=== PATIENT | female | born 2000 ===

== ENCOUNTER 2018-10-18 13:45 | Inpatient (IN) ==
[2018-10-18] MEDS ORDERED: ASPIRIN 325 MG TABLET PO STA (14:28)
[2018-10-18 14:36] LABS: Basophils % 0.4 % (0.0-0.8); Eosinophils % 0.2 % (0.00-10.9); Hematocrit 26.5 VOL% (35.7-47.0); Hemoglobin 8.8 GM/DL (12.0-16.0); Immature Granulocytes % 0.7 %; Immature Granulocytes Absolute 0.03 #; Lymphocytes # 0.4 10*3/uL (1.4-4.0); Lymphocytes % 9.6 % (21.3-54.2); Mean Corpuscular HGB Conc 33.2 GM/DL (32-36); Mean Corpuscular Hemoglobin 31 PG (27-34); Mean Corpuscular Volume 94.3 FL (87-102); Mean Platelet Volume 9.8 FL (9.6-12.0); Monocytes # 0.2 10*3/uL (0.11-0.8); Monocytes % 3.9 % (1.7-12.7); Neutrophils # 3.9 10*3/uL (1.4-7.4); Neutrophils % 85.2 % (38.7-73.9); Platelet Count 100 T/CUMM (130-400); Red Blood Count 2.81 MC/CUMM (3.8-5.5); Red Cell Distribution Width 12.6 % (9.3-17.3); White Blood Count 4.6 T/CUMM (4-12)
[2018-10-18 14:47] LABS: PT Patient Result 10.9 SECS; Partial Thromboplastin Time 37.6 SECS (0-40)
[2018-10-18] MEDS ORDERED: VANCOMYCIN INJ 1,500 MG in SODIUM CHLORIDE 0.9% 500 ML IV STA (14:47)
[2018-10-18] MEDS ORDERED: CLINDAMYCIN INJ 600 MG in PREMIX 1 EACH IV STA (14:53)
[2018-10-18 14:57] LABS: Albumin 3.4 G/DL (3.4-5.0); Bilirubin,Total 0.5 MG/DL (0.2-1.0); Calcium 7.9 MG/DL (8.5-10.1); Osmolality,Calculated 271.8 MOS/KG (273-304); Potassium 3.4 MMOL/L (3.5-5.1); Total Protein 6.3 G/DL (6.4-8.3)
[2018-10-18] MEDS ORDERED: ACETAMINOPHEN 325 MG TABLET PO PRN (15:55)
[2018-10-18] MEDS ORDERED: MORPHINE 4 MG/1 ML VIAL IV PRN (15:55)
[2018-10-18] MEDS ORDERED: LACTULOSE 20 GM/30 ML UDCUP PO PRN (15:55)
[2018-10-18] MEDS ORDERED: ONDANSETRON 4 MG/2 ML VIAL IV PRN (15:55)
[2018-10-18] MEDS ORDERED: SODIUM CHLORIDE 0.9% 1,000 ML IV SCH (17:00)
[2018-10-18] MEDS ORDERED: LEVOFLOXACIN INJ 750 MG in PREMIX 1 EACH IV SCH (17:30)
[2018-10-18] MEDS: DOCUSATE SODIUM 100 MG CAPSULE PO SCH (21:40)
[2018-10-19] MEDS ORDERED: ACETAMINOPHEN 325 MG TABLET PO PRN (00:04)
[2018-10-19 01:44] LABS: Basophils % 0.4 % (0.0-0.8); Eosinophils # 0.1 10*3/uL (0.0-0.87); Eosinophils % 0.9 % (0.00-10.9); Hematocrit 26.6 VOL% (35.7-47.0); Hemoglobin 8.8 GM/DL (12.0-16.0); Immature Granulocytes % 1.3 %; Immature Granulocytes Absolute 0.07 #; Lymphocytes # 0.4 10*3/uL (1.4-4.0); Lymphocytes % 8.3 % (21.3-54.2); Mean Corpuscular HGB Conc 33.1 GM/DL (32-36); Mean Corpuscular Hemoglobin 32 PG (27-34); Mean Corpuscular Volume 95.3 FL (87-102); Mean Platelet Volume 10.1 FL (9.6-12.0); Monocytes # 0.3 10*3/uL (0.11-0.8); Monocytes % 5.3 % (1.7-12.7); Neutrophils # 4.4 10*3/uL (1.4-7.4); Neutrophils % 83.8 % (38.7-73.9); Red Blood Count 2.79 MC/CUMM (3.8-5.5); Red Cell Distribution Width 12.8 % (9.3-17.3); White Blood Count 5.3 T/CUMM (4-12)
[2018-10-19 01:45] LABS: Platelet Count 97 T/CUMM (130-400)
[2018-10-19 02:07] LABS: Calcium 7.5 MG/DL (8.5-10.1); Osmolality,Calculated 271.2 MOS/KG (273-304); Potassium 4.2 MMOL/L (3.5-5.1)
[2018-10-19] MEDS: DOCUSATE SODIUM 100 MG CAPSULE PO SCH ×2 (09:08→22:31)
[2018-10-19] MEDS ORDERED: BUPIVACAINE MPF 0.25% 30 ML VIAL ONE (11:27)
[2018-10-19] MEDS ORDERED: LIDOCAINE 1%/EPI INJ 20 ML VIAL ONE (11:27)
[2018-10-19] MEDS ORDERED: PROPOFOL 200 MG/20 ML VIAL IV ONE (12:23)
[2018-10-19] MEDS ORDERED: MIDAZOLAM 2 MG/2 ML VIAL ONE (12:23)
[2018-10-19] MEDS ORDERED: fentaNYL 100 MCG/2 ML VIAL ONE (12:23)
[2018-10-20 05:25] LABS: Basophils % 0.3 % (0.0-0.8); Eosinophils # 0.2 10*3/uL (0.0-0.87); Eosinophils % 2.6 % (0.00-10.9); Hematocrit 28.5 VOL% (35.7-47.0); Hemoglobin 8.9 GM/DL (12.0-16.0); Immature Granulocytes % 4.1 %; Immature Granulocytes Absolute 0.24 #; Lymphocytes % 17.2 % (21.3-54.2); Mean Corpuscular HGB Conc 31.2 GM/DL (32-36); Mean Corpuscular Hemoglobin 31 PG (27-34); Mean Corpuscular Volume 97.6 FL (87-102); Mean Platelet Volume 10.8 FL (9.6-12.0); Monocytes # 0.4 10*3/uL (0.11-0.8); Monocytes % 7.4 % (1.7-12.7); Neutrophils % 68.4 % (38.7-73.9); Platelet Count 101 T/CUMM (130-400); Red Blood Count 2.92 MC/CUMM (3.8-5.5); Red Cell Distribution Width 12.9 % (9.3-17.3); White Blood Count 5.8 T/CUMM (4-12)
[2018-10-20 05:52] LABS: Calcium 8.2 MG/DL (8.5-10.1); Osmolality,Calculated 273.4 MOS/KG (273-304); Potassium 4.5 MMOL/L (3.5-5.1)
[2018-10-20] MEDS: DOCUSATE SODIUM 100 MG CAPSULE PO SCH ×2 (08:00→21:53)
[2018-10-20] MEDS ORDERED: SODIUM CHLORIDE 0.9% IV ONE (12:00)
[2018-10-20] MEDS ORDERED: AMIKACIN IV ONE (12:00)
[2018-10-20] MEDS ORDERED: AZTREONAM 1,000 MG in SYRINGE 1 EACH IV SCH (12:00)
[2018-10-20] MEDS ORDERED: AMIKACIN IV PRN (12:01)
[2018-10-20] MEDS ORDERED: SODIUM CHLORIDE 0.9% IV PRN (12:01)
[2018-10-20] MEDS: AZTREONAM 1,000 MG in SODIUM CHLORIDE 0.9% 100 ML IV SCH (14:38)
[2018-10-21] MEDS: DOCUSATE SODIUM 100 MG CAPSULE PO SCH ×2 (10:50→21:12)
[2018-10-21] MEDS: AZTREONAM 1,000 MG in SODIUM CHLORIDE 0.9% 100 ML IV SCH (12:54)
[2018-10-21] MEDS: CIPROFLOXACIN 500 MG TABLET PO SCH (17:59)
[2018-10-22] MEDS: CIPROFLOXACIN 500 MG TABLET PO SCH (08:13)
[2018-10-22] MEDS: DOCUSATE SODIUM 100 MG CAPSULE PO SCH ×2 (08:13→21:42)
[2018-10-22] MEDS: AZTREONAM 1,000 MG in SYRINGE 1 EACH IV SCH (13:22)
[2018-10-23 06:32] LABS: Basophils % 0.4 % (0.0-0.8); Eosinophils # 0.6 10*3/uL (0.0-0.87); Eosinophils % 8.6 % (0.00-10.9); Hematocrit 29.4 VOL% (35.7-47.0); Hemoglobin 9.4 GM/DL (12.0-16.0); Immature Granulocytes % 16.7 %; Immature Granulocytes Absolute 1.23 #; Lymphocytes # 2.2 10*3/uL (1.4-4.0); Lymphocytes % 29.3 % (21.3-54.2); Mean Corpuscular Hemoglobin 31 PG (27-34); Mean Corpuscular Volume 95.5 FL (87-102); Mean Platelet Volume 9.7 FL (9.6-12.0); Monocytes # 0.6 10*3/uL (0.11-0.8); Monocytes % 8.4 % (1.7-12.7); Neutrophils # 2.7 10*3/uL (1.4-7.4); Neutrophils % 36.6 % (38.7-73.9); Platelet Count 169 T/CUMM (130-400); Red Blood Count 3.08 MC/CUMM (3.8-5.5); Red Cell Distribution Width 12.8 % (9.3-17.3); White Blood Count 7.4 T/CUMM (4-12)
[2018-10-23 06:52] LABS: Calcium 8.3 MG/DL (8.5-10.1); Osmolality,Calculated 279.8 MOS/KG (273-304); Potassium 4.3 MMOL/L (3.5-5.1)
[2018-10-23] MEDS: CIPROFLOXACIN 500 MG TABLET PO SCH (09:02)
[2018-10-23] MEDS: DOCUSATE SODIUM 100 MG CAPSULE PO SCH ×2 (09:02→21:09)
[2018-10-23 10:04] LABS: Eosinophils 11 % (0-10); Lymphocytes 38 % (20-55); Segmented Neutrophils 40 % (50-85); Total Cells Counted 100
[2018-10-23 10:05] LABS: Anisocytosis 1+; Hypochromasia 1+; Ovalocytes Few; Platelet Estimate Adequate; Polychromasia Slight; Stomatocytes Slight
[2018-10-23] MEDS: AZTREONAM 1,000 MG in SYRINGE 1 EACH IV SCH (14:06)
[2018-10-24] MEDS: DOCUSATE SODIUM 100 MG CAPSULE PO SCH (08:55)
[2018-10-24] MEDS: CIPROFLOXACIN 500 MG TABLET PO SCH (08:55)
[2018-10-24] MEDS: AZTREONAM 1,000 MG in SYRINGE 1 EACH IV SCH (12:11)
[2018-10-24 12:38] VITALS: BP 128/74
== END 2018-10-24 14:06 | disposition home or self-care (01) | DRG 314 ==
LOC: EDBD → EDUNIT# → N.EDINP 13:45 → N.ED 13:45 → N.5E 17:34 → SUATTDRO 10-19 09:28
PROVIDERS: ADMIT Internal Medicine; ATTEND Internal Medicine

== ENCOUNTER 2020-09-03 12:48 | Observation (INO) ==
[2020-09-03 13:35] LABS: Basophils % 0.4 % (0.0-0.8); Eosinophils # 0.1 10*3/uL (0.0-0.87); Eosinophils % 3.1 % (0.00-10.9); Hematocrit 37.4 VOL% (35.7-47.0); Hemoglobin 12.5 GM/DL (12.0-16.0); Immature Granulocytes Absolute 0.09 #; Lymphocytes % 21.7 % (21.3-54.2); Mean Corpuscular HGB Conc 33.4 GM/DL (32-36); Mean Corpuscular Volume 92.8 FL (87-102); Mean Platelet Volume 8.9 FL (9.6-12.0); Monocytes % 4.7 % (1.7-12.7); Neutrophils % 68.1 % (38.7-73.9); Platelet Count 157 T/CUMM (130-400); Red Blood Count 4.03 MC/CUMM (3.8-5.5); Red Cell Distribution Width 13.6 % (9.3-17.3); White Blood Count 4.5 T/CUMM (4-12)
[2020-09-03 13:54] LABS: Albumin 3.8 G/DL (3.4-5.0); Bilirubin,Total 0.4 MG/DL (0.2-1.0); Calcium 8.4 MG/DL (8.5-10.1); Osmolality,Calculated 285.4 MOS/KG (273-304); Total Protein 7.6 G/DL (6.4-8.3)
[2020-09-03 14:17] LABS: Bacteria,Urine Many /HPF (Few); Bilirubin,Urine Negative (Negative); Blood, Urine Small mg/dL (Negative); Glucose,Urine (UA) Negative (Negative); Ketones,Urine Negative (Negative); Mucus,Urine Moderate /LPF (Occasional); Nitrite,Urine Negative (Negative); Protein,Urine 100 MG/DL; Squamous Epithelial Cell,Urine Occasional /HPF (0-10); Urine Appearance CLOUDY (Clear); Urine Color Red (Yellow); Urine Specific Gravity 1.006 (1.001-1.035); Urine Urobilinogen < 2.0 EU/DL (0.2-1.0); WBC,Urine 99 /HPF (0-6)
[2020-09-03 14:38] LABS: Barbiturates Screen,Urine Negative (Negative); Benzodiazepines Screen,Urine Negative (Negative); Cannabinoid Screen,Urine Negative (Negative); Opiate Screen,Urine Negative (Negative); Phencyclidine Screen,Urine Negative (Negative)
[2020-09-03] MEDS ORDERED: ACETAMINOPHEN 325 MG TABLET PO PRN (15:03)
[2020-09-03] MEDS ORDERED: DEXTROSE 50% 25 GM/50 ML VIAL IV PRN (15:03)
[2020-09-03] MEDS ORDERED: ALBUTEROL 2.5 MG/3 ML NEB RESP TX PRN (15:03)
[2020-09-03] MEDS ORDERED: ONDANSETRON 4 MG/2 ML VIAL IV PRN (15:03)
[2020-09-03] MEDS ORDERED: GLUCAGON 1 MG VIAL IM PRN (15:03)
[2020-09-03] MEDS: HEPARIN 5,000 UNIT/1 ML VIAL SUBCUT SCH ×2 (18:39→22:43)
[2020-09-03] MEDS ORDERED: LEVOFLOXACIN INJ 500 MG in PREMIX 1 EACH IV ONE (21:00)
[2020-09-04 05:34] LABS: Basophils % 0.6 % (0.0-0.8); Eosinophils # 0.2 10*3/uL (0.0-0.87); Eosinophils % 3.8 % (0.00-10.9); Hematocrit 36.7 VOL% (35.7-47.0); Hemoglobin 12.7 GM/DL (12.0-16.0); Immature Granulocytes % 2.3 %; Immature Granulocytes Absolute 0.12 #; Lymphocytes # 1.5 10*3/uL (1.4-4.0); Lymphocytes % 27.7 % (21.3-54.2); Mean Corpuscular HGB Conc 34.6 GM/DL (32-36); Mean Corpuscular Volume 89.5 FL (87-102); Mean Platelet Volume 9.3 FL (9.6-12.0); Monocytes % 7.4 % (1.7-12.7); Neutrophils % 58.2 % (38.7-73.9); Platelet Count 146 T/CUMM (130-400); Red Cell Distribution Width 13.5 % (9.3-17.3); White Blood Count 5.2 T/CUMM (4-12)
[2020-09-04 05:51] LABS: Calcium 8.3 MG/DL (8.5-10.1); Osmolality,Calculated 288.4 MOS/KG (273-304)
[2020-09-04] MEDS ORDERED: POTASSIUM CHLORIDE 20 MEQ TABLET PO ONE (07:58)
[2020-09-04] MEDS ORDERED: PANTOPRAZOLE 40 MG TABLET PO SCH (09:00)
[2020-09-04] MEDS: HEPARIN 5,000 UNIT/1 ML VIAL SUBCUT SCH ×2 (09:55→14:46)
[2020-09-04 17:22] VITALS: BP 115/62
[2020-09-05] MEDS ORDERED: LEVOFLOXACIN INJ 250 MG in PREMIX 1 EACH IV SCH (21:00)
== END 2020-09-04 18:58 | disposition home or self-care (01) ==
LOC: EDUNIT# → N.EDINP 12:48 → N.ED 12:48 → SUATTDRO 14:37 → N.2E 15:39
PROVIDERS: ADMIT Internal Medicine; ATTEND Internal Medicine

== ENCOUNTER 2021-08-09 20:32 | Inpatient (IN) ==
[2021-08-09 21:41] LABS: Basophils # 0.1 10*3/uL (0.0-0.2); Basophils % 0.5 % (0.0-0.8); Eosinophils # 0.1 10*3/uL (0.0-0.87); Eosinophils % 1.3 % (0.00-10.9); Hematocrit 38.7 VOL% (35.7-47.0); Hemoglobin 13.1 GM/DL (12.0-16.0); Immature Granulocytes % 0.6 %; Immature Granulocytes Absolute 0.06 #; Lymphocytes # 0.8 10*3/uL (1.4-4.0); Lymphocytes % 8.8 % (21.3-54.2); Mean Corpuscular HGB Conc 33.9 GM/DL (32-36); Mean Corpuscular Volume 95.1 FL (87-102); Mean Platelet Volume 9.4 FL (9.6-12.0); Monocytes % 5.2 % (1.7-12.7); Neutrophils % 83.6 % (38.7-73.9); Platelet Count 194 T/CUMM (130-400); Red Blood Count 4.07 MC/CUMM (3.8-5.5); Red Cell Distribution Width 15.9 % (9.3-17.3); White Blood Count 9.4 T/CUMM (4-12)
[2021-08-09] MEDS ORDERED: cefTRIAXone 1,000 MG in SODIUM CHLORIDE 0.9% 100 ML IV STA (21:41)
[2021-08-09 22:05] LABS: Albumin 4.3 G/DL (3.4-5.0); Bilirubin,Total 0.6 MG/DL (0.20-1.00); Calcium 8.3 MG/DL (8.5-10.1); Osmolality,Calculated 310.1 MOS/KG (273-304); Potassium 2.7 MMOL/L (3.5-5.1); Total Protein 7.5 G/DL (6.4-8.2)
[2021-08-09] MEDS ORDERED: GLUCAGON 1 MG VIAL IM PRN (23:00)
[2021-08-09] MEDS ORDERED: DEXTROSE 50% 25 GM/50 ML VIAL IV PRN (23:00)
[2021-08-09] MEDS ORDERED: cefTRIAXone 1,000 MG in SODIUM CHLORIDE 0.9% 100 ML IV SCH (23:00)
[2021-08-09] MEDS ORDERED: ONDANSETRON 4 MG/2 ML VIAL IV PRN (23:00)
[2021-08-09] MEDS ORDERED: ACETAMINOPHEN 325 MG TABLET PO PRN (23:00)
[2021-08-09] MEDS ORDERED: HEPARIN 5,000 UNIT/1 ML VIAL SUBCUT STA (23:17)
[2021-08-10 00:12] LABS: Barbiturates Screen,Urine Negative (Negative); Benzodiazepines Screen,Urine Negative (Negative); Cannabinoid Screen,Urine Negative (Negative); Opiate Screen,Urine Negative (Negative); Phencyclidine Screen,Urine Negative (Negative)
[2021-08-10 00:13] LABS: Amorphous Crystals,Urine Occasional /HPF (Few); Bacteria,Urine Many /HPF (Few); Bilirubin,Urine Negative (Negative); Blood, Urine Moderate mg/dL (Negative); Glucose,Urine (UA) Negative (Negative); Ketones,Urine Negative (Negative); Mucus,Urine Moderate /LPF (Occasional); Nitrite,Urine Negative (Negative); Protein,Urine >=500 MG/DL; RBC,Urine 276 /HPF (0-4); Squamous Epithelial Cell,Urine Occasional /HPF (0-10); Urine Appearance CLOUDY (Clear); Urine Color Yellow (Yellow); Urine Specific Gravity 1.007 (1.001-1.035); Urine Urobilinogen < 2.0 EU/DL (0.2-1.0)
[2021-08-10 02:57] LABS: Osmolality,Calculated 313.7 MOS/KG (273-304); Potassium 3.1 MMOL/L (3.5-5.1)
[2021-08-10 06:55] LABS: Basophils # 0.1 10*3/uL (0.0-0.2); Basophils % 0.5 % (0.0-0.8); Eosinophils # 0.1 10*3/uL (0.0-0.87); Eosinophils % 1.5 % (0.00-10.9); Hematocrit 35.3 VOL% (35.7-47.0); Hemoglobin 12.3 GM/DL (12.0-16.0); Immature Granulocytes % 0.8 %; Immature Granulocytes Absolute 0.07 #; Lymphocytes # 1.2 10*3/uL (1.4-4.0); Lymphocytes % 13.2 % (21.3-54.2); Mean Corpuscular HGB Conc 34.8 GM/DL (32-36); Mean Corpuscular Volume 94.9 FL (87-102); Mean Platelet Volume 9.8 FL (9.6-12.0); Monocytes % 7.7 % (1.7-12.7); Neutrophils % 76.3 % (38.7-73.9); Platelet Count 176 T/CUMM (130-400); Red Blood Count 3.72 MC/CUMM (3.8-5.5); Red Cell Distribution Width 16.1 % (9.3-17.3); White Blood Count 9.2 T/CUMM (4-12)
[2021-08-10] MEDS: PANTOPRAZOLE 40 MG TABLET PO SCH (08:20)
[2021-08-10] MEDS: OXYBUTYNIN 5 MG TABLET PO SCH (08:20)
[2021-08-10] MEDS: SEVELAMER CARBONATE 800 MG TABLET PO SCH ×3 (08:20→16:55)
[2021-08-10] MEDS: carvediloL 25 MG TABLET PO SCH ×2 (08:20→20:25)
[2021-08-10] MEDS: ASPIRIN EC 81 MG TABLET PO SCH (08:20)
[2021-08-10] MEDS: POTASSIUM CHLORIDE RIDER 10 MEQ/100 ML PREMIX IV PRN ×3 (08:25→16:55)
[2021-08-10 10:38] LABS: Hepatitis B Core IgM Quant 0.13 Index; Hepatitis B Surface Ag Quant < 0.10 Index; Hepatitis B Surface Ag Result Non-Reactive (NonReactive); Hepatitis C Virus Ab Quant 0.04 Index; Hepatitis C Virus Ab Result Non-Reactive (NonReactive)
[2021-08-10] MEDS: cefTRIAXone 1,000 MG in SODIUM CHLORIDE 0.9% 100 ML IV SCH (20:25)
[2021-08-11 05:47] LABS: Basophils % 0.5 % (0.0-0.8); Eosinophils # 0.2 10*3/uL (0.0-0.87); Eosinophils % 2.9 % (0.00-10.9); Hematocrit 31.1 VOL% (35.7-47.0); Hemoglobin 11.2 GM/DL (12.0-16.0); Immature Granulocytes % 1.5 %; Immature Granulocytes Absolute 0.11 #; Lymphocytes # 1.5 10*3/uL (1.4-4.0); Lymphocytes % 20.1 % (21.3-54.2); Mean Corpuscular Volume 91.2 FL (87-102); Mean Platelet Volume 10.1 FL (9.6-12.0); Monocytes % 8.9 % (1.7-12.7); NRBC # 0.02 10*3/uL; Neutrophils % 66.1 % (38.7-73.9); Platelet Count 149 T/CUMM (130-400); Red Blood Count 3.41 MC/CUMM (3.8-5.5); Red Cell Distribution Width 15.7 % (9.3-17.3); White Blood Count 7.3 T/CUMM (4-12)
[2021-08-11 06:05] LABS: Calcium 7.3 MG/DL (8.5-10.1); Osmolality,Calculated 287.7 MOS/KG (273-304)
[2021-08-11] MEDS: POTASSIUM CHLORIDE RIDER 10 MEQ/100 ML PREMIX IV PRN ×5 (06:20→20:53)
[2021-08-11] MEDS ORDERED: POTASSIUM CHLORIDE 20 MEQ TABLET PO ONE ×2 (07:23→16:04)
[2021-08-11] MEDS: carvediloL 25 MG TABLET PO SCH ×3 (09:28→20:54)
[2021-08-11] MEDS: SEVELAMER CARBONATE 800 MG TABLET PO SCH ×3 (09:28→17:10)
[2021-08-11] MEDS: ASPIRIN EC 81 MG TABLET PO SCH (09:28)
[2021-08-11] MEDS: PANTOPRAZOLE 40 MG TABLET PO SCH (09:28)
[2021-08-11] MEDS: OXYBUTYNIN 5 MG TABLET PO SCH (09:28)
[2021-08-11 14:38] LABS: Calcium 7.5 MG/DL (8.5-10.1); Osmolality,Calculated 290.4 MOS/KG (273-304); Potassium 2.8 MMOL/L (3.5-5.1)
[2021-08-11] MEDS: cefTRIAXone 1,000 MG in SODIUM CHLORIDE 0.9% 100 ML IV SCH (20:53)
[2021-08-12 06:07] LABS: Basophils # 0.1 10*3/uL (0.0-0.2); Basophils % 0.9 % (0.0-0.8); Eosinophils # 0.2 10*3/uL (0.0-0.87); Eosinophils % 2.9 % (0.00-10.9); Hematocrit 28.4 VOL% (35.7-47.0); Hemoglobin 9.5 GM/DL (12.0-16.0); Immature Granulocytes % 1.3 %; Immature Granulocytes Absolute 0.07 #; Lymphocytes # 1.9 10*3/uL (1.4-4.0); Lymphocytes % 33.5 % (21.3-54.2); Mean Corpuscular HGB Conc 33.5 GM/DL (32-36); Mean Corpuscular Volume 97.3 FL (87-102); Mean Platelet Volume 9.6 FL (9.6-12.0); Monocytes % 10.4 % (1.7-12.7); Platelet Count 136 T/CUMM (130-400); Red Blood Count 2.92 MC/CUMM (3.8-5.5); Red Cell Distribution Width 17.2 % (9.3-17.3); White Blood Count 5.6 T/CUMM (4-12)
[2021-08-12 06:47] LABS: Calcium 8.3 MG/DL (8.5-10.1); Potassium 3.3 MMOL/L (3.5-5.1)
[2021-08-12] MEDS: OXYBUTYNIN 5 MG TABLET PO SCH (08:08)
[2021-08-12] MEDS: SEVELAMER CARBONATE 800 MG TABLET PO SCH ×3 (08:08→16:57)
[2021-08-12] MEDS: PANTOPRAZOLE 40 MG TABLET PO SCH (08:08)
[2021-08-12] MEDS: ASPIRIN EC 81 MG TABLET PO SCH (08:08)
[2021-08-12] MEDS ORDERED: POTASSIUM CHLORIDE 20 MEQ TABLET PO ONE (10:05)
[2021-08-12] MEDS: carvediloL 25 MG TABLET PO SCH (13:58)
[2021-08-12 17:37] LABS: Basophils # 0.1 10*3/uL (0.0-0.2); Basophils % 0.7 % (0.0-0.8); Eosinophils # 0.2 10*3/uL (0.0-0.87); Eosinophils % 2.3 % (0.00-10.9); Hematocrit 33.7 VOL% (35.7-47.0); Hemoglobin 11.5 GM/DL (12.0-16.0); Immature Granulocytes % 1.2 %; Lymphocytes # 1.4 10*3/uL (1.4-4.0); Lymphocytes % 17.4 % (21.3-54.2); Mean Corpuscular HGB Conc 34.1 GM/DL (32-36); Mean Corpuscular Volume 94.9 FL (87-102); Mean Platelet Volume 9.8 FL (9.6-12.0); Monocytes % 7.2 % (1.7-12.7); Neutrophils % 71.2 % (38.7-73.9); Platelet Count 180 T/CUMM (130-400); Red Blood Count 3.55 MC/CUMM (3.8-5.5); White Blood Count 8.2 T/CUMM (4-12)
[2021-08-12 17:52] LABS: Calcium 8.2 MG/DL (8.5-10.1); Osmolality,Calculated 277.8 MOS/KG (273-304)
[2021-08-12 20:03] VITALS: BP 100/58
== END 2021-08-12 20:45 | disposition home or self-care (01) | DRG 698 ==
LOC: EDBD → EDUNIT# → N.ED 20:32 → N.EDINP 20:32 → N.3E 23:40 → SUATTDRO 08-11 11:26
PROVIDERS: ADMIT Internal Medicine; ATTEND Internal Medicine

== ENCOUNTER 2022-03-23 04:14 | Inpatient (IN) ==
[2022-03-23] MEDS ORDERED: PHENYLEPHRINE DRIP 40 MG/250 ML PREMIX IV PRN (06:34)
[2022-03-23] MEDS ORDERED: NICOTINE 21 MG/24 HR PATCH TRANSDERM PRN (06:34)
[2022-03-23] MEDS ORDERED: ALBUTEROL 2.5 MG/3 ML NEB RESP TX PRN (06:34)
[2022-03-23 06:53] LABS: Basophils % 0.4 % (0.0-0.8); Eosinophils % 0.4 % (0.00-10.9); Hematocrit 25.7 VOL% (35.7-47.0); Hemoglobin 8.9 GM/DL (12.0-16.0); Immature Granulocytes % 1.7 %; Immature Granulocytes Absolute 0.12 #; Lymphocytes # 0.7 10*3/uL (1.4-4.0); Lymphocytes % 10.2 % (21.3-54.2); Mean Corpuscular HGB Conc 34.6 GM/DL (32-36); Mean Corpuscular Volume 95.5 FL (87-102); Mean Platelet Volume 9.9 FL (9.6-12.0); Monocytes # 0.7 10*3/uL (0.11-0.8); Monocytes % 9.8 % (1.7-12.7); NRBC # 0.05 10*3/uL; Neutrophils % 77.5 % (38.7-73.9); Platelet Count 259 T/CUMM (130-400); Red Blood Count 2.69 MC/CUMM (3.8-5.5); Red Cell Distribution Width 15.7 % (9.3-17.3); White Blood Count 7.2 T/CUMM (4-12)
[2022-03-23 07:06] LABS: Arterial Base Excess iSTAT -24 MMOL/L (-2.5-2.5); Arterial Bicarbonate iSTAT 3.9 MMOL/L (20-26); Arterial O2 Saturation iSTAT 52 % (95-100); Arterial PCO2 iSTAT 13 MM HG (35-48); Arterial PO2 iSTAT 37 MM HG (80-95); Arterial Total CO2 iSTAT < 5 MMO/L (23-27); Arterial pH iSTAT 7.082 (7.35-7.45)
[2022-03-23] MEDS: PANTOPRAZOLE 40 MG VIAL IV SCH (07:09)
[2022-03-23 07:39] LABS: Arterial Base Excess iSTAT -25 MMOL/L (-2.5-2.5); Arterial Bicarbonate iSTAT 2.5 MMOL/L (20-26); Arterial O2 Saturation iSTAT 98 % (95-100); Arterial PCO2 iSTAT 8 MM HG (35-48); Arterial PO2 iSTAT 140 MM HG (80-95); Arterial Total CO2 iSTAT < 5 MMO/L (23-27); Arterial pH iSTAT 7.115 (7.35-7.45)
[2022-03-23 07:40] LABS: Albumin 3.7 G/DL (3.4-5.0); Bilirubin,Total 0.5 MG/DL (0.20-1.00); Calcium 8.2 MG/DL (8.5-10.1); Osmolality,Calculated 333.3 MOS/KG (273-304); Total Protein 6.9 G/DL (6.4-8.2)
[2022-03-23] MEDS ORDERED: NITROGLYCERIN SL 0.4 MG TABLET SL ONE (07:48)
[2022-03-23] MEDS ORDERED: ASPIRIN 325 MG TABLET ONE (07:48)
[2022-03-23 07:50] LABS: Potassium 1.9 MMOL/L (3.5-5.1)
[2022-03-23] MEDS ORDERED: MORPHINE 2 MG/1 ML SYRINGE ONE (07:52)
[2022-03-23] MEDS ORDERED: POTASSIUM CHLORIDE 20 MEQ TABLET PO ONE (07:56)
[2022-03-23] MEDS ORDERED: SODIUM BICARBONATE 50 MEQ/50 ML VIAL IV ONE (07:58)
[2022-03-23] MEDS ORDERED: MORPHINE 2 MG/1 ML SYRINGE IV ONE (08:00)
[2022-03-23] MEDS ORDERED: ASPIRIN 325 MG TABLET PO ONE (08:00)
[2022-03-23] MEDS: ONDANSETRON 4 MG/2 ML VIAL IV PRN (08:45)
[2022-03-23] MEDS: POTASSIUM CHLORIDE RIDER 10 MEQ/100 ML PREMIX IV PRN ×6 (08:45→18:42)
[2022-03-23 09:38] LABS: Hepatitis B Core IgM Quant 0.16 Index; Hepatitis B Surface Ag Quant < 0.10 Index; Hepatitis B Surface Ag Result Non-Reactive (NonReactive); Hepatitis C Virus Ab Quant < 0.02 Index; Hepatitis C Virus Ab Result Non-Reactive (NonReactive)
[2022-03-23] MEDS: SODIUM BICARB INJ 150 MEQ in DEXTROSE 5% 1,000 ML IV SCH ×2 (10:00→20:39)
[2022-03-23 11:44] LABS: Arterial Base Excess iSTAT -8 MMOL/L (-2.5-2.5); Arterial Bicarbonate iSTAT 14.8 MMOL/L (20-26); Arterial O2 Saturation iSTAT 99 % (95-100); Arterial PCO2 iSTAT 20 MM HG (35-48); Arterial PO2 iSTAT 119 MM HG (80-95); Arterial Total CO2 iSTAT 15 MMO/L (23-27); Arterial pH iSTAT 7.472 (7.35-7.45)
[2022-03-23 12:13] LABS: Calcium 8.4 MG/DL (8.5-10.1); Osmolality,Calculated 298.5 MOS/KG (273-304); Potassium 2.6 MMOL/L (3.5-5.1)
[2022-03-23 12:54] LABS: Amorphous Crystals,Urine Few /HPF (Few); Bacteria,Urine Many /HPF (Few); RBC,Urine 248 /HPF (0-4); Squamous Epithelial Cell,Urine Occasional /HPF (0-10)
[2022-03-23 12:55] LABS: Bilirubin,Urine Negative (Negative); Blood, Urine Large mg/dL (Negative); Glucose,Urine (UA) Negative (Negative); Ketones,Urine 15 mg/dL (Negative); Nitrite,Urine Negative (Negative); Protein,Urine >=300 mg/dL (Negative); Urine Appearance Cloudy (Clear); Urine Color Brown (Yellow); Urine Specific Gravity 1.015 (1.001-1.035); Urine Urobilinogen 0.2 eU/dL (<2.0); Urine pH 8.5 (4.5-8.0)
[2022-03-23 14:44] LABS: Calcium 8.7 MG/DL (8.5-10.1); Osmolality,Calculated 293.5 MOS/KG (273-304)
[2022-03-23 14:47] LABS: Potassium 2.1 MMOL/L (3.5-5.1)
[2022-03-23 15:57] LABS: Basophils % 0.1 % (0.0-0.8); Eosinophils % 0.5 % (0.00-10.9); Hematocrit 21.8 VOL% (35.7-47.0); Hemoglobin 7.9 GM/DL (12.0-16.0); Immature Granulocytes % 0.9 %; Immature Granulocytes Absolute 0.07 #; Lymphocytes # 0.3 10*3/uL (1.4-4.0); Lymphocytes % 4.3 % (21.3-54.2); Mean Corpuscular HGB Conc 36.2 GM/DL (32-36); Mean Corpuscular Volume 91.6 FL (87-102); Mean Platelet Volume 9.8 FL (9.6-12.0); Monocytes # 0.7 10*3/uL (0.11-0.8); Monocytes % 8.4 % (1.7-12.7); NRBC # 0.12 10*3/uL; Neutrophils % 85.8 % (38.7-73.9); Platelet Count 236 T/CUMM (130-400); Red Blood Count 2.38 MC/CUMM (3.8-5.5); Red Cell Distribution Width 15.1 % (9.3-17.3)
[2022-03-23 16:15] LABS: Calcium 7.9 MG/DL (8.5-10.1); Osmolality,Calculated 283.5 MOS/KG (273-304)
[2022-03-23 16:17] LABS: Lymphocytes 4 % (20-55); Nucleated Red Blood Cells 2 (0-5); Total Cells Counted 100
[2022-03-23 16:18] LABS: Target Cells Few
[2022-03-23 16:19] LABS: Anisocytosis 1+; Hypochromia Slight; Ovalocytes Slight
[2022-03-23 16:20] LABS: Pappenheimer Bodies Few; Polychromasia Slight
[2022-03-23 16:21] LABS: Basophilic Stippling Few
[2022-03-23 16:23] LABS: Platelet Estimate Increased
[2022-03-23] MEDS: POTASSIUM CHLORIDE 20 MEQ TABLET PO SCH ×2 (16:33→23:59)
[2022-03-24 00:15] LABS: Calcium 6.2 MG/DL (8.5-10.1); Potassium 2.8 MMOL/L (3.5-5.1)
[2022-03-24] MEDS: POTASSIUM CHLORIDE RIDER 10 MEQ/100 ML PREMIX IV PRN ×5 (00:37→05:55)
[2022-03-24 04:09] LABS: Basophils % 0.3 % (0.0-0.8); Eosinophils # 0.1 10*3/uL (0.0-0.87); Eosinophils % 1.8 % (0.00-10.9); Hematocrit 20.1 VOL% (35.7-47.0); Hemoglobin 7.1 GM/DL (12.0-16.0); Immature Granulocytes % 0.7 %; Immature Granulocytes Absolute 0.04 #; Lymphocytes % 16.8 % (21.3-54.2); Mean Corpuscular HGB Conc 35.3 GM/DL (32-36); Mean Corpuscular Volume 94.4 FL (87-102); Mean Platelet Volume 9.8 FL (9.6-12.0); Monocytes # 0.8 10*3/uL (0.11-0.8); Monocytes % 13.7 % (1.7-12.7); NRBC # 0.09 10*3/uL; Neutrophils % 66.7 % (38.7-73.9); Platelet Count 211 T/CUMM (130-400); Red Blood Count 2.13 MC/CUMM (3.8-5.5); Red Cell Distribution Width 15.9 % (9.3-17.3); White Blood Count 6.1 T/CUMM (4-12)
[2022-03-24 04:40] LABS: Alanine Aminotransferase 18 U/L (13-56); Albumin 2.8 G/DL (3.4-5.0); Alkaline Phosphatase 64 U/L (45-117); Aspartate Amino Transferase 26 U/L (0-37); Bilirubin,Total < 0.39 MG/DL (0.20-1.00); Blood Urea Nitrogen 44 MG/DL (7-18); Calcium 5.9 MG/DL (8.5-10.1); Carbon Dioxide 23 MMOL/L (21-32); Chloride 114 MMOL/L (98-107); Estimated Glom Filtration Rate 8 ML/MIN; Glucose 92 MG/DL (74-106); Potassium 3.4 MMOL/L (3.5-5.1); Sodium 143 MMOL/L (136-145); Total Protein 5.3 G/DL (6.4-8.2)
[2022-03-24] MEDS: PANTOPRAZOLE 40 MG VIAL IV SCH (06:02)
[2022-03-24] MEDS ORDERED: MAGNESIUM SULF RIDER 2 GM/50 ML PREMIX IV ONE (08:06)
[2022-03-24] MEDS: CIPROFLOXACIN 250 MG TABLET PO SCH (08:32)
[2022-03-24] MEDS: SODIUM BICARB INJ 150 MEQ in DEXTROSE 5% 1,000 ML IV SCH ×2 (08:36→20:19)
[2022-03-24] MEDS ORDERED: SODIUM CHLORIDE 0.9% 1,000 ML IV PRN ×2 (09:00→10:34)
[2022-03-24 12:11] LABS: Calcium 7.1 MG/DL (8.5-10.1); Osmolality,Calculated 281.5 MOS/KG (273-304); Potassium 3.2 MMOL/L (3.5-5.1)
[2022-03-24] MEDS ORDERED: GENTAMICIN INJ 120 MG/100 ML PREMIX IV ONE (14:00)
[2022-03-24 15:14] LABS: Hematocrit 27.1 VOL% (35.7-47.0); Hemoglobin 9.4 GM/DL (12.0-16.0)
[2022-03-24] MEDS: POTASSIUM CHLORIDE 20 MEQ TABLET PO PRN ×4 (15:37→22:37)
[2022-03-24] MEDS: SEVELAMER CARBONATE 800 MG TABLET PO SCH ×2 (15:37→20:18)
[2022-03-24] MEDS: ONDANSETRON 4 MG/2 ML VIAL IV PRN (17:35)
[2022-03-24] MEDS: carvediloL 12.5 MG TABLET PO SCH (20:18)
[2022-03-25 04:16] LABS: Basophils % 0.3 % (0.0-0.8); Eosinophils # 0.1 10*3/uL (0.0-0.87); Eosinophils % 1.5 % (0.00-10.9); Hematocrit 26.2 VOL% (35.7-47.0); Hemoglobin 8.9 GM/DL (12.0-16.0); Immature Granulocytes % 0.8 %; Immature Granulocytes Absolute 0.06 #; Lymphocytes # 1.4 10*3/uL (1.4-4.0); Lymphocytes % 18.5 % (21.3-54.2); Mean Corpuscular Volume 91.9 FL (87-102); Mean Platelet Volume 9.9 FL (9.6-12.0); Monocytes # 0.8 10*3/uL (0.11-0.8); Monocytes % 10.1 % (1.7-12.7); NRBC # 0.06 10*3/uL; Neutrophils % 68.8 % (38.7-73.9); Platelet Count 171 T/CUMM (130-400); Red Blood Count 2.85 MC/CUMM (3.8-5.5); White Blood Count 7.4 T/CUMM (4-12)
[2022-03-25 04:29] LABS: Albumin 2.7 G/DL (3.4-5.0); Bilirubin,Total 0.4 MG/DL (0.20-1.00); Calcium 7.4 MG/DL (8.5-10.1); Osmolality,Calculated 280.7 MOS/KG (273-304); Potassium 3.4 MMOL/L (3.5-5.1); Total Protein 5.1 G/DL (6.4-8.2)
[2022-03-25] MEDS: POTASSIUM CHLORIDE 20 MEQ TABLET PO PRN ×3 (05:07→08:53)
[2022-03-25] MEDS: carvediloL 12.5 MG TABLET PO SCH ×2 (08:50→20:06)
[2022-03-25] MEDS: CIPROFLOXACIN 250 MG TABLET PO SCH (08:51)
[2022-03-25] MEDS: PANTOPRAZOLE 40 MG TABLET PO SCH (08:51)
[2022-03-25] MEDS: SEVELAMER CARBONATE 800 MG TABLET PO SCH ×3 (08:52→20:06)
[2022-03-25] MEDS ORDERED: ALUMINUM/MAGNES/SIMETH MAX STR 30 ML UDCUP PO PRN (09:25)
[2022-03-25] MEDS: SODIUM BICARB INJ 150 MEQ in DEXTROSE 5% 1,000 ML IV SCH (11:02)
[2022-03-25] MEDS: ITRACONAZOLE 100 MG CAPSULE PO SCH (13:02)
[2022-03-26 04:03] LABS: Basophils % 0.2 % (0.0-0.8); Eosinophils # 0.1 10*3/uL (0.0-0.87); Eosinophils % 1.4 % (0.00-10.9); Hematocrit 27.4 VOL% (35.7-47.0); Immature Granulocytes % 0.6 %; Immature Granulocytes Absolute 0.06 #; Lymphocytes # 1.6 10*3/uL (1.4-4.0); Lymphocytes % 16.6 % (21.3-54.2); Mean Corpuscular HGB Conc 32.8 GM/DL (32-36); Mean Corpuscular Volume 97.2 FL (87-102); Mean Platelet Volume 9.4 FL (9.6-12.0); Monocytes % 10.6 % (1.7-12.7); NRBC # 0.03 10*3/uL; Neutrophils % 70.6 % (38.7-73.9); Platelet Count 186 T/CUMM (130-400); Red Blood Count 2.82 MC/CUMM (3.8-5.5); Red Cell Distribution Width 17.8 % (9.3-17.3); White Blood Count 9.5 T/CUMM (4-12)
[2022-03-26 04:17] LABS: Albumin 2.5 G/DL (3.4-5.0); Bilirubin,Total 0.4 MG/DL (0.20-1.00); Calcium 8.1 MG/DL (8.5-10.1); Osmolality,Calculated 283.7 MOS/KG (273-304); Potassium 5.1 MMOL/L (3.5-5.1); Total Protein 5.2 G/DL (6.4-8.2)
[2022-03-26] MEDS: PANTOPRAZOLE 40 MG TABLET PO SCH (08:08)
[2022-03-26] MEDS: CIPROFLOXACIN 250 MG TABLET PO SCH (08:08)
[2022-03-26] MEDS: ITRACONAZOLE 100 MG CAPSULE PO SCH (08:08)
[2022-03-26] MEDS: SEVELAMER CARBONATE 800 MG TABLET PO SCH ×3 (08:08→20:20)
[2022-03-26] MEDS: carvediloL 12.5 MG TABLET PO SCH ×2 (08:09→20:20)
[2022-03-27] MEDS: carvediloL 12.5 MG TABLET PO SCH ×2 (08:18→21:01)
[2022-03-27] MEDS: SEVELAMER CARBONATE 800 MG TABLET PO SCH ×3 (08:18→21:01)
[2022-03-27] MEDS: CIPROFLOXACIN 250 MG TABLET PO SCH (08:18)
[2022-03-27] MEDS: PANTOPRAZOLE 40 MG TABLET PO SCH (08:18)
[2022-03-27] MEDS: ITRACONAZOLE 100 MG CAPSULE PO SCH (08:18)
[2022-03-27 09:01] LABS: Calcium 8.2 MG/DL (8.5-10.1); Osmolality,Calculated 289.4 MOS/KG (273-304); Potassium 4.6 MMOL/L (3.5-5.1)
[2022-03-27] MEDS ORDERED: HEPARIN/NACL 0.9% 2 UNITS/ML 2,000 UNIT/1,000 ML BAG IV ONE (09:18)
[2022-03-27] MEDS ORDERED: HEPARIN 1,000 UNIT/1 ML VIAL ONE (09:18)
[2022-03-28 05:31] LABS: Calcium 8.5 MG/DL (8.5-10.1); Osmolality,Calculated 278.5 MOS/KG (273-304); Potassium 4.1 MMOL/L (3.5-5.1)
[2022-03-28 07:45] VITALS: BP 100/55
[2022-03-28] MEDS: ITRACONAZOLE 100 MG CAPSULE PO SCH (08:45)
[2022-03-28] MEDS: PANTOPRAZOLE 40 MG TABLET PO SCH (08:45)
[2022-03-28] MEDS: CIPROFLOXACIN 250 MG TABLET PO SCH (08:46)
[2022-03-28] MEDS ORDERED: SEVELAMER CARBONATE 800 MG TABLET PO SCH (12:00)
[2022-03-28] MEDS: carvediloL 12.5 MG TABLET PO SCH (13:48)
== END 2022-03-28 14:29 | disposition home or self-care (01) | DRG 673 ==
LOC: SUATTDRO 06:01 → N.CC 06:01 → N.5E 03-27 15:20
PROVIDERS: ADMIT Internal Medicine; ATTEND Internal Medicine